=== PATIENT | male | born 1940 | race Caucasian/White ===

== ENCOUNTER 2017-03-28 03:18 | Emergency (ER) | payer OTHER, MEDICARE ==
[~2017-03-28] VITALS: Ht 160 cm; Wt 59.4 kg
--- NOTE | 2017-03-28 03:45 | NUR ---
PT BROUGHT IN BY [facility], STATES ABDOMINAL PAIN AFTER EATING 8 HOURS PRIOR TO ARRIVAL. PT STATES BLOATING WITH ABD PAIN, VSS 138/81, 77 PAIN STATED 02/16. MD TO PT BEDSIDE.
[2017-03-28 03:51] LABS: ABG BASE EXCESS -1.8 mmol/L; ABG OXYGEN SATURATION 45.3 % (92.0-98.5); ABG PCO2 41.6 mmHg (35.0-45.0); ABG PH 7.369 (7.350-7.450); ABG PO2 23.2 mmHg (75.0-100.0); COHb 3.1 % (0.5-1.5); MetHb 0.5 % (0.0-1.5); O2Hb 43.7 % (94.0-97.0); VENT MODE, BG VENOUS
[2017-03-28 03:51] LABS: BASOPHILS % (AUTO) 0.2 % (0.0-2.0); EOSINOPHILS # (AUTO) 0.1 /CMM (0.0-0.7); EOSINOPHILS % (AUTO) 0.9 % (0.0-6.0); HEMATOCRIT 49 % (39-51); HEMOGLOBIN 15.8 g/dL (13.5-17.5); LYMPHOCYTES # (AUTO) 1.1 /CMM (0.8-4.8); LYMPHOCYTES % (AUTO) 8.3 % (20.0-44.0); MEAN CORPUSCULAR HEMOGLOBIN 31 PG (26.0-33.0); MEAN CORPUSCULAR HGB CONC 33 g/dl (31.0-36.0); MEAN CORPUSCULAR VOLUME 94 fL (80-96); MONOCYTES # (AUTO) 0.7 /CMM (0.1-1.30); MONOCYTES % (AUTO) 4.9 % (2.0-12.0); NEUTROPHILS # (AUTO) 11.6 /CMM (1.8-8.9); NEUTROPHILS % (AUTO) 85.7 % (43.0-81.0); PLATELET COUNT (AUTO) 202 /CMM (150-450); RDW COEFFICIENT OF VARIATION 13.9 (11.5-15.0); RED BLOOD CELL COUNT(AUTO) 5.16 MIL/uL (4.5-6.0); WHITE BLOOD COUNT (AUTO) 13.5 K/uL (4.3-11.0)
[2017-03-28] MEDS ORDERED: HYDROMORPHONE INJ 2 MG/ML DISP.SYRIN ONE ×2 (03:51→08:22)
--- NOTE | 2017-03-28 03:54 | NUR ---
RECEIVED DILAUDID 2MG IV FROM [employer] [facility], WASTED DILAUDID 1MG WITH RN CHARLES AND CHING MANZO.
[2017-03-28] MEDS ORDERED: IV NS 0.9% 500 ML BAG IV ONE (04:00)
[2017-03-28] MEDS ORDERED: ONDANSETRON HCL/PF 4 MG/2 ML VIAL IVP ONE (04:00)
[2017-03-28] MEDS ORDERED: HYDROMORPHONE INJ 2 MG/ML DISP.SYRIN IV ONE (04:00)
[2017-03-28 04:03] LABS: CALCIUM, SERUM 9.5 mg/dL (8.5-10.1); CARBON DIOXIDE 28 mmol/L (21-32); CHLORIDE 105 mmol/L (98-107); GLUCOSE 118 mg/dL (74-106); POTASSIUM 4.2 mmol/L (3.5-5.1); SODIUM SERUM 143 mmol/L (136-145); UREA NITROGEN, BLOOD 32 mg/dL (7-18)
--- NOTE | 2017-03-28 04:04 | NUR ---
[phone] [phone]
[2017-03-28] MEDS ORDERED: ONDANSETRON HCL/PF 4 MG/2 ML VIAL ONE (04:08)
[2017-03-28 04:09] LABS: ALANINE AMINOTRANSFERASE 23 U/L (12-78); ALBUMIN 3.8 g/dL (3.4-5.0); ALKALINE PHOSPHATASE 82 U/L (46-116); ASPARTATE AMINOTRANSFERASE 16 U/L (15-37); BILIRUBIN,DIRECT 0.1 mg/dL (0.0-0.2); BILIRUBIN,TOTAL 0.8 mg/dL (0.2-1.0); LIPASE 154 U/L (73-393); TOTAL PROTEIN, SERUM 7.5 g/dL (6.4-8.2)
[2017-03-28 04:10] LABS: TROPONIN I < 0.017 ng/mL (0.00-0.056)
[2017-03-28] MEDS ORDERED: IOHEXOL-300 100 ML VIAL IV ONE (04:13)
[2017-03-28] MEDS ORDERED: IV NS 0.9% 250 ML IV ONE (04:13)
[2017-03-28] MEDS ORDERED: IOHEXOL-350 100 ML VIAL IV ONE (04:20)
[2017-03-28 04:25] LABS: INR 0.95 (0.87-1.13); PROTHROMBIN TIME 9.9 SECS (9.5-12.7)
[2017-03-28] MEDS ORDERED: LIDOCAINE VISCOUS 2% UD 15 ML UDC MM ONE (05:00)
[2017-03-28] MEDS ORDERED: LIDOCAINE 4% PF AMPUL 40 MG/ML AMPUL TP ONE (05:00)
[2017-03-28] MEDS ORDERED: LIDOCAINE 4% PF AMPUL 40 MG/ML AMPUL ONE (05:02)
[2017-03-28] MEDS ORDERED: LIDOCAINE VISCOUS 2% UD 15 ML UDC ONE (05:03)
--- NOTE | 2017-03-28 05:20 | NUR ---
CALLED [facility]. WAITING FOR MD STRAUSS.
--- NOTE | 2017-03-28 05:24 | NUR ---
DR. CORONADO [facility]/ POC
--- NOTE | 2017-03-28 06:03 | NUR ---
LATE ENTRY: 0350 PT ASSESSMENT DONE BEDSIDE. NG TUBE PLACED 0603 18F, 54, SECURED IN PLACE, PLACEMENT VERIFIED BY AUSCULTATION AND ASPIRATION. PT PLACED ON LOW INTERMITTANT HOB SEMI-FOWLERS. PT REASTING COMFORTABLY WITH NO COMPLAINTS OF PAIN AT THIS TIME. VSS PT DOZING, EASILY AWAKENED.
--- NOTE | 2017-03-28 06:19 | NUR ---
PT WILL BE ADMITTED TO [facility], WAITING FOR FURTHER INSTRUCTION FOR PLACEMENT. PT RESTING PEACEFULLY, EASILY AWAKENED, VSS
--- NOTE | 2017-03-28 06:21 | NUR ---
CALL FROM [facility]. PT ACCEPTED TO [facility]. ROOM 4[address], BY DR [place]. # FOR REPORT [phone]. ETA [id number]
--- NOTE | 2017-03-28 07:00 | NUR ---
REPORT CALLED TO [facility] RECEIVING NURSE. PT STABLE FOR TRANSPORT VIA ACLS PROTOCOL, VSS. PT RESTING COMFORTABLY WITH NO COMPLAINTS OF PAIN AT THIS TIME. NG SECURED. ETA OF TRANSPORT 0715.
--- NOTE | 2017-03-28 07:04 | NUR ---
READYING PT FOR TRANSPORT, PT NOW COMPLAINING OF PAIN, MD NOTIFIED.
[2017-03-28] MEDS ORDERED: HYDROMORPHONE 1 MG/1 ML DISP.SYRIN IV ONE (07:30)
--- NOTE | 2017-03-28 08:02 | NUR ---
CALLED [facility] TO F/UP ETA OF TRANSPORTATION, HE WILL CALL ME BACK FOR INFO
--- NOTE | 2017-03-28 08:07 | NUR ---
AMBULANCE ETA 10 MINS
[2017-03-28 08:34] VITALS: BP 123/72
== END 2017-03-28 08:37 | disposition short-term general hospital (02) ==
LOC: ER 03:20
DX: K56.699 Other intestinal obstruction unspecified as to partial versus complete obstruction (principal); D72.829 Elevated white blood cell count, unspecified; G89.29 Other chronic pain; Z85.038 Personal history of other malignant neoplasm of large intestine; Z98.890 Other specified postprocedural states
CPT/HCPCS: 36415; 36600 ×2; 74174; 80048; 80076; 82803; 83605; 83690; 84484; 85025; 85730; 93005; 96361; 96374; 96375; 96376; 99285; A4606; J1170 ×2; J2405; J3490 ×2; J7040; J7050; Q9967 ×2; Z7610